=== PATIENT | male | born 1945 | race Caucasian/White ===

== ENCOUNTER 2016-11-12 06:49 | Emergency (ER) | payer OTHER ==
[~2016-11-12] VITALS: Ht 177.8 cm; Wt 71.7 kg
[2016-11-12 07:37] LABS: PT 12.7 SEC (9.4-12.5)
[2016-11-12 07:46] LABS: ABSOLUTE BASOPHIL COUNT 0 /CUMM (0.0-0.2); ABSOLUTE EOSINOPHIL COUNT 0.9 /CUMM (0.0-0.7); ABSOLUTE GRANULOCYTE CT 4.5 /CUMM (1.4-6.5); ABSOLUTE LYMPH COUNT 2.6 /CUMM (1.2-3.4); ABSOLUTE MONOCYTE COUNT 0.6 /CUMM (0.10-0.60); BASOPHIL % 0.4 % (0.0-2.0); EOSINOPHIL % 10.5 % (0-5); GRANULOCYTE % 51.8 % (42.2-75.2); HEMATOCRIT 39.3 % (42-52); MEAN CORPUSCULAR HGB 30.7 PG (27.0-31.0); MEAN CORPUSCULAR HGB CONC 33.3 G/DL (33.0-37.0); MEAN CORPUSCULAR VOLUME 92.1 FL (80.0-94.0); MEAN PLATELET VOLUME 8.7 FL (7.4-10.4); PLATELET COUNT 144 /CUMM (130-400); RED BLOOD CELL CT 4.27 /CUMM (4.70-6.10); WHITE BLOOD CELL COUNT 8.7 /CUMM (4.8-10.8)
--- NOTE | 2016-11-12 08:17 | CT SCAN REPORT ---
EXAMINATION: CT HEAD WITHOUT CONTRAST CLINICAL INFORMATION: Syncope. COMPARISON: None. TECHNIQUE: Contiguous axial imaging was performed from the skull base to vertex without intravenous administration of contrast. DLP: 529.16 mGy-cm. FINDINGS: There is no evidence of acute intracranial hemorrhage or territorial infarction. No abnormal mass effect or midline shift is seen. Barrera to white matter differentiation is well preserved. No extra-axial fluid collections are identified. There is mild commensurate prominence of the ventricles and sulci. There is mild low attenuation in the periventricular and subcortical white matter, most consistent with mild chronic microvascular ischemic changes. The osseous structures and soft tissues are normal. The mastoid air cells are poorly pneumatized bilaterally. There is mucoperiosteal thickening in the bilateral ethmoid sinuses. There are likely polyps in the right nasal cavity. IMPRESSION: 1. There are no acute bleeds or territorial infarcts. 2. There are changes consistent with mild diffuse volume loss and there are sequelae of mild chronic microvascular ischemic disease.
[2016-11-12] MEDS ORDERED: ZOCOR40 M1 PO (09:07)
[2016-11-12] MEDS ORDERED: LOPRESSOR50 M1 PO (09:07)
[2016-11-12] MEDS ORDERED: ASPIRIN81 M4 PO (09:07)
[2016-11-12] MEDS ORDERED: LISINOPRIL2.5 M1 PO (09:07)
[2016-11-12] MEDS ORDERED: LEVOTHYROXINE50 MCG PO (09:08)
--- NOTE | 2016-11-12 09:12 | RADIOLOGY REPORT ---
EXAMINATION: XR PORTABLE CHEST CLINICAL INFORMATION: Syncope COMPARISON: CT of July 06, 2014 TECHNIQUE: Portable AP view of the chest was obtained. 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 There is no evidence of acute parenchymal disease, pneumothorax, or pleural effusion. Heart normal size. No evidence of pulmonary edema. Unipolar pacemaker in place. Multilevel degenerative spurring of the thoracic spine present. IMPRESSION: No acute disease. 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 No significant pleural effusion identified.
[2016-11-12 09:24] VITALS: BP 123/60
--- NOTE | 2016-11-12 11:14 | ED SYNCOPE COMPLAINT ---
History of Present Illness General Chief Complaint: Syncope and Near-Syncope Stated Complaint: BIBA, SYNCOPAL EPISODE Source: patient, family, old records, EMS Exam Limitations: no limitations Vital Signs & Intake/Output Vital Signs & Intake/Output Vital Signs Date Time Temp Pulse Resp B/P Pulse O2 O2 Flow FiO2 Ox Delivery Rate 11/13 923 97.1 64 16 123/60 98 Room Air 11/12 0815 97.1 66 18 131/65 98 Room Air 11/12 0705 98 Room Air 11/12 0656 96.9 64 18 145/67 98 Room Air Allergies Coded Allergies: No Known Allergies (11/12/16) Reconcile Medications Aspirin (Aspirin*) 81 MG TAB.CHEW 1 TAB PO DAILY HEART HEALTH (Reported) Levothyroxine Sodium 50 MCG TABLET 1 TAB PO DAILY AC THYROID (Reported) Lisinopril 2.5 MG TABLET 1 TAB PO DAILY HEART (Reported) Metoprolol Tartrate (Lopressor) 50 MG TABLET 1 TAB PO BID HEART (Reported) Simvastatin (Zocor*) 40 MG TABLET 1 TAB PO QPM CHOLESTEROL (Reported) Core Measure Meds Pre-Hospital aspirin Triage Note: 71 YEAR OLD MALE TO ER VIA AMBULANCE FROM HIS HOME AFTER WITNESSED SYNCOPLE EPISODE, PT ALERT AND ORIENTED ON ARRIVAL, SKIN COOL AND PALE, STATES THAT HE WAS STANDING IN KITCHEN GETTING READY TO TAKE HIS MEDICATION WHEN HE STARTED TO FEEL DIZZY, AND HAD ACHING FEELING MID CHEST, PT STATES THEN HE WOKE WITH HIS FAMILY BY HIM. DENIES HITTING HIS HEAD, PT NOTED WITH DRY BLOOD ON SIDE OF HIS LIP ON LEFT SIDE, WITH ABRASION. STATES THAT HE CUT HIMSELF SHAVING THE OTHER DAY. COMPLAINS OF SLIGHT NAUSEA AT THIS TIME AND DENIES SOB OR CP. O2 SAT 98 % ON RA, NSR ON MONITOR WITH HR 62-66, PT IS UNSURE BUT HE STATES THAT HE THINKS HE HAS DEFRILATOR/PACEMAKER IN L SIDE CHEST. Triage Nurses Notes Reviewed? yes Timing: single episode today Precipitating Factors: lightheadedness Context: became dizzy/fainted Episode Description: LOC Loss of Consciousness: brief (seconds) Associated Symptoms: dizziness, syncope, nausea/vomiting, weakness HPI: 1 week prior to admission patient complained of runny nose congestion headache. Prior to admission patient was shaving and cut himself. He then felt lightheaded and right-sided chest pain mild intensity vague quality nonradiating currently gone with subsequent loss of consciousness for less than 1 minute. He denies fever chills vomiting diarrhea shortness of breath dysuria rash bleeding. Past History Travel History Traveled to [place] past 21 day No Medical History Any Pertinent Medical History? 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 No Review of Systems Review of Systems Constitutional: Reports: no symptoms, weakness. EENTM: Reports: see HPI, nasal congestion. Respiratory: Reports: no symptoms. Cardiovascular: Reports: see HPI, chest pain, syncope. GI: Reports: no symptoms. Genitourinary: Reports: no symptoms. Musculoskeletal: Reports: no symptoms. Skin: Reports: no symptoms. Neurological/Psychological: Reports: see HPI, headache. All Other Systems: Reviewed and Negative Physical Exam Physical Exam General Appearance: well developed/nourished, alert, awake, mild distress Head: active bleeding (left upper lip with abrasion) Eyes: Bilateral: normal appearance, PERRL, EOMI. Ears, Nose, Throat: normal pharynx, normal ENT inspection, hearing grossly normal Neck: normal inspection, supple, full range of motion, no midline tenderness Respiratory: normal breath sounds, chest non-tender, no respiratory distress, quiet respiration, lungs clear Cardiovascular: regular rate/rhythm, normal peripheral pulses, norml femoral pulses equa Gastrointestinal: normal bowel sounds, soft, non-tender, no organomegaly Back: normal inspection, normal range of motion Extremities: normal inspection, normal capillary refill, normal range of motion, no edema Psychiatric: awake, alert, oriented x 3 Cranial Nerves: normal hearing, normal speech, PERRL Coordination/Gait: normal finger to nose, normal gait Motor/Sensory: no motor/sensory deficits Reflexes: 2+: bicep (R), bicep (L). Skin: intact, normal color, warm/dry Lymphatic: no anterior cervical roal Core Measures ACS in differential dx? Yes ASA ordered for poss ACS? No-other contraindication (taken at home) CVA/TIA Diagnosis: No Severe Sepsis Present: No Septic Shock Present: No Progress Differential Diagnosis: AMI, drug induced syncope, orthostatic syncope, pacemaker malfunction, seizure, sick sinus syndrome, vasodepressor syncope Plan of Care: Orders Procedure Date/time Status Regular Diet 11/12 B Active TROPONIN LEVEL 11/12 1110 Complete EKG 11/12 1110 Active TSH REFLEX 11/12 07 Complete TROPONIN LEVEL 11/12 07 Complete PROTHROMBIN TIME 11/12 07 Complete PROLACTIN 11/12 07 Complete MAGNESIUM 11/12 07 Complete COMPREHENSIVE METABOLIC PANEL 11/12 07 Complete CBC WITHOUT DIFFERENTIAL 11/13 715 Complete EKG 11/12 0655 Active Laboratory Tests 11/12/16 1121: Troponin I < 0.01 11/12/16 0721: Anion Gap 0 L, Estimated GFR > 60, BUN/Creatinine Ratio 22.2, Glucose 144 H, Calcium 9.4, Magnesium 1.9, Total Bilirubin 0.8, AST 26, ALT 32, Alkaline Phosphatase 53, Troponin I < 0.01, Total Protein 6.7, Albumin 3.6, Globulin 3.1, Albumin/Globulin Ratio 1.2, TSH &T3 &Free T4 Intrp 2.570, Prolactin 53.7 H, PT 12.7 H, INR 1.21 H, CBC w Diff NO MAN DIFF REQ, RBC 4.27 L, MCV 92.1, MCH 30.7, RDW 13.0, MPV 8.7, Gran % 51.8, Lymphocytes % 30.0, Monocytes % 7.3, Eosinophils % 10.5 H, Basophils % 0.4, Absolute Granulocytes 4.5, Absolute Lymphocytes 2.6, Absolute Monocytes 0.6, Absolute Eosinophils 0.9, Absolute Basophils 0, PUBS MCHC 33.3 Diagnostic Imaging: Viewed by Me: Radiology Read, CT Scan. Discussed w/RAD: Radiology Read, CT Scan. Radiology Impression: no acute abnormality CXR Impression: no acute abnormality Initial ED EKG: normal axis, normal intervals, normal p-waves, normal QRS complex, normal sinus rhythm, no ST T wave changes Prior EKG: unchanged Repeat EKG: unchanged Rhythm Strip: normal sinus rhythm Comments: [employer] interrogation of AICD without ventricular ectopic activity/ arrhythmia. Departure Departure Time of Disposition: 1210 Disposition: HOME OR SELF CARE Condition: Stable Clinical Impression Primary Impression: Syncope and collapse Secondary Impressions: Acute hyponatremia Referrals: DENZEL BOLIVAR APRN (PCP/Family) MARQUISE NAZARIO,ELVIA Csoby Departure Forms: Customer Survey General Discharge Information Critical Care Note Critical Care Note Critical Care Time: 30-74 min (40)
== END 2016-11-12 12:19 ==
LOC: ERH 06:49
PROVIDERS: Emergency Medicine
DX: R55 Syncope and collapse (principal); E87.1 Hypo-osmolality and hyponatremia; R42 Dizziness and giddiness; R07.9 Chest pain, unspecified; R51 Headache
CPT/HCPCS: 93005; 93010; 96361; 96374; J2405; J7040